=== PATIENT | female | born 1995 | race Caucasian/White ===

== ENCOUNTER 2016-11-10 16:07 | Outpatient (CLI) | payer OTHER ==
--- NOTE | 2016-11-10 16:55 | Non Stress Test Report ---
Non Stress Test Datetime Report Generated by CPN: 11/10/2016 16:55 INDICATION Indication for Study: Ordered by Provider Indication for Study (NST) Other: nst for repeat macrosomia VITAL SIGNS Temperature - NST: 99.4 MONITORING Monitor Explained: Monitor Explained; Test Explained; Patient Verbalized Understanding Time on Monitor: 11/10/2016 16:15 Time off Monitor: 11/10/2016 16:51 NST Duration: 36 NST INTERVENTIONS NST Interventions: PO Hydration; Reposition Patient Physician Notified NST: PJimmy Lowery CNM BABY A: [id number] BABY A Movement : Present Contraction Frequency : 2-9 FHR Baseline : 125 Accelerations : 15X15 Decelerations : None Variability : Moderate 6-25bpm NST Review: Meets Criteria for Reactive NST NST Review and Verified By : Toño Soria RN NST Results: Reactive NST REPORT Report Trigger: Send Report
== END 2016-11-10 17:04 | disposition home or self-care (01) ==
LOC: LC 16:07
PROVIDERS: ATTEND Obstetrics & Gynecology
PROC: 4A1HXCZ Monitoring of Products of Conception, Cardiac Rate, External Approach (ICD-10-PCS; principal; 2016-11-10)
DX: O36.63X0 Maternal care for excessive fetal growth, third trimester, not applicable or unspecified (principal); O36.8130 Decreased fetal movements, third trimester, not applicable or unspecified; Z3A.37 37 weeks gestation of pregnancy
CPT/HCPCS: 59025

== ENCOUNTER 2016-11-12 19:33 | Inpatient (IN) | payer OTHER ==
[2016-11-12 20:10] LABS: APPEARANCE,URINE CLEAR; BILIRUBIN,URINE NEGATIVE (NEGATIVE); GLUCOSE, URINE NEGATIVE (NEGATIVE); KETONES,URINE NEGATIVE (NEGATIVE); LEUKOCYTE ESTERASE,URINE NEGATIVE (NEGATIVE); NITRITE,URINE NEGATIVE (NEGATIVE); PROTEIN,URINE NEGATIVE (NEGATIVE); URINE SPECIFIC GRAVITY 1.006; UROBILINOGEN,URINE NEGATIVE mg/dL (<2.0)
[2016-11-12 20:12] LABS: AMNISURE (ROM) POSITIVE (NEGATIVE)
[2016-11-12 20:28] LABS: URINE BARBITURATES SCREEN NEGATIVE; URINE METHADONE SCREEN NEGATIVE; URINE OPIATES LOW NEGATIVE; URINE PHENCYCLIDINE SCREEN NEGATIVE
[2016-11-12] MEDS ORDERED: RINGERS SOLUTION,LACTATED 300 ML IV ONE (20:54)
[2016-11-12] MEDS ORDERED: MISOPROSTOL 0.1 MG TABLET PO ONE ×2 (20:54→20:58)
[2016-11-12] MEDS ORDERED: MISOPROSTOL 0.1 MG TABLET PV ONE (20:54)
[2016-11-12 20:55] LABS: ABSOLUTE EOSINOPHILS # (AUTO) 0.1 10^3/uL (0.0-0.6); ABSOLUTE LYMPHOCYTES (AUTO) 1.7 10^3/uL (0.5-4.7); ABSOLUTE MONOCYTES (AUTO) 0.7 10^3/uL (0.1-1.4); ABSOLUTE NEUT (AUTO) 6.3 10^3/uL (1.7-8.2); BASOPHILS % (AUTO) 0.3 % (0-2); EOSINOPHILS % (AUTO) 0.9 % (0-6); HEMATOCRIT 35.9 % (36.0-47.0); HGB HCT DIFFERENCE 0.1; LYMPHOCYTES % (AUTO) 19.2 % (13-45); MEAN CORPUSCULAR HEMOGLOBIN 31.2 pg (27.0-33.4); MEAN CORPUSCULAR HGB CONC 33.4 g/dL (32.0-36.0); MEAN CORPUSCULAR VOLUME 93 fl (80-97); MONOCYTES % (AUTO) 8.1 % (3-13); RED BLOOD COUNT 3.86 10^6/uL (3.72-5.28); RED CELL DISTRIBUTION WIDTH 13.7 % (11.5-14.0); SEGMENTED NEUTROPHILS % (AUTO) 71.5 % (42-78); WHITE BLOOD COUNT 8.8 10^3/uL (4.0-10.5)
[2016-11-12] MEDS ORDERED: MISOPROSTOL 0.1 MG TABLET ONE (21:06)
[2016-11-12] MEDS: RINGERS SOLUTION,LACTATED 1,000 ML IV PRN (21:17)
[2016-11-13] MEDS ORDERED: MISOPROSTOL 0.1 MG TABLET PO ONE (01:30)
[2016-11-13] MEDS ORDERED: ZOLPIDEM TARTRATE 5 MG TABLET PO ONE (01:30)
[2016-11-13] MEDS ORDERED: MISOPROSTOL 0.1 MG TABLET ONE (01:32)
[2016-11-13] MEDS ORDERED: MISOPROSTOL 0.1 MG TABLET PV ONE (01:32)
[2016-11-13] MEDS ORDERED: ZOLPIDEM TARTRATE 5 MG TABLET ONE (01:33)
[2016-11-13] MEDS: RINGERS SOLUTION,LACTATED 1,000 ML IV PRN (05:41)
[2016-11-13] MEDS ORDERED: NALBUPHINE HCL INJ 10 MG/1 ML AMPULE ONE (06:17)
[2016-11-13] MEDS ORDERED: PROMETHAZINE HCL 25 MG TABLET ONE (06:18)
[2016-11-13] MEDS ORDERED: MISOPROSTOL 0.2 MG TABLET ONE (07:57)
[2016-11-13] MEDS ORDERED: BUPIVACAINE HCL 0.25 % INJ/PF (2.5 MG/1 ML) 30 ML VIAL ONE ×2 (07:58→14:03)
[2016-11-13] MEDS ORDERED: FENTANYL/BUPIVACAINE/NS/PF 200 MCG/100 ML RTUINJ EPI ONE (07:58)
[2016-11-13] MEDS ORDERED: OXYTOCIN/NORMAL SALINE 20 UNIT/1,000 ML RTUINJ ONE (07:58)
[2016-11-13] MEDS ORDERED: LIDOCAINE 1% INJ-PF (10 MG/ML) 30 ML SDV ONE (07:58)
[2016-11-13] MEDS ORDERED: EPHEDRINE SULFATE INJ 50 MG/1 ML AMPULE ONE (07:58)
[2016-11-13] MEDS ORDERED: LIDOCAINE 1% INJ-PF (10 MG/ML) 30 ML SDV INJ PRN (08:10)
[2016-11-13] MEDS ORDERED: OXYTOCIN/NORMAL SALINE 1,000 ML IV PRN ×2 (08:16→16:30)
[2016-11-13] MEDS ORDERED: AMPICILLIN SODIUM 2 GM in NORMAL SALINE 100 ML IV ONE ×2 (11:31→20:30)
[2016-11-13] MEDS ORDERED: GENTAMICIN SULFATE INJ 80 MG/2 ML VIAL IV ONE (11:32)
[2016-11-13] MEDS ORDERED: ONDANSETRON HCL INJ/PF 4 MG/2 ML SDV ONE (11:33)
[2016-11-13] MEDS ORDERED: AMPICILLIN SOD INJ 2 GM VIAL ONE ×2 (11:33→15:37)
[2016-11-13] MEDS ORDERED: ONDANSETRON HCL INJ/PF 4 MG/2 ML SDV IV ONE (11:59)
--- NOTE | 2016-11-13 12:59 | L&D Progress Notes ---
PROGRESS NOTES Datetime Report Generated by CPN: 11/13/2016 12:59 PROGRESS NOTE Impression: Normal Progression of Labor Procedures: Sterile Vag Exam Plan: Continue Present Management; Induction Informed Consent Obtained: Vaginal Delivery; Induction of Labor; Risks, Benefits and Alternatives Discussed Vital Signs : Reviewed; Within Normal Limits Comment: 37+5ega with SROM yesterday at approx noon clear fluid. Due to prolonged SROM - Amp/Gent ordered. Pt given cytotec yesterday and this am has schieved 1cm dilation and then Pitocin inititated. Cvx now 3-4cm and no need for Cooks catheter. Will continue with pitocin and anticipate . EFW 9#. Reassuring FWB. VAGINAL EXAM Dilatation: 4 Dilatation: 0 Effacement: 80 Effacement: 75 Station: -2 Station: -2 MEMBRANES Pooling: Positive Pooling: Positive Membranes: Ruptured Membranes: Ruptured Amniotic Fluid Color: Clear FETUS A FHR - Baseline: 120 Monitoring: External US Variability: Moderate 6-25bpm Accelerations: 15X15 Decelerations: None FHR Category: Category I : 37.5 Estimated Weight (gm): 3800 Presentation: Vertex SIGNATURE SIGNATURE: [id number] SIGNATURE: [id number] Signature: with User ID: [email or web address]
[2016-11-13] MEDS ORDERED: GENTAMICIN SULFATE INJ 80 MG/2 ML VIAL ONE (13:01)
[2016-11-13] MEDS ORDERED: AMPICILLIN SODIUM 1 GM in NORMAL SALINE 50 ML IV SCH (14:00)
[2016-11-13] MEDS ORDERED: ACETAMINOPHEN WITH CODEINE #3 TABLET PO PRN ×2 (16:30)
[2016-11-13] MEDS ORDERED: PSEUDOEPHEDRINE HCL 30 MG TABLET PO PRN (16:30)
[2016-11-13] MEDS ORDERED: GLYCERIN/WITCH HAZEL LEAF 1 EACH MED..PAD TP PRN (16:30)
[2016-11-13] MEDS ORDERED: PROMETHAZINE HCL 25 MG TABLET PO PRN (16:30)
[2016-11-13] MEDS ORDERED: ACETAMINOPHEN 650 MG SUPP.RECT PR PRN (16:30)
[2016-11-13] MEDS ORDERED: PROMETHAZINE HCL 25 MG SUPP.RECT PR PRN (16:30)
[2016-11-13] MEDS ORDERED: MAGNESIUM HYDROXIDE SUSP 30 ML UDCUP PO PRN (16:30)
[2016-11-13] MEDS ORDERED: PROMETHAZINE HCL INJ 25 MG/1 ML VIAL IV PRN (16:30)
[2016-11-13] MEDS ORDERED: DIPHENHYDRAMINE HCL 25 MG CAPSULE PO PRN (16:30)
[2016-11-13] MEDS ORDERED: DIPH/PERTUSS(ACELL)/TETANUS VAC/PF 0.5 ML SYR (>=10YO) IM PRN (16:30)
[2016-11-13] MEDS ORDERED: ZOLPIDEM TARTRATE 5 MG TABLET PO PRN (16:30)
[2016-11-13] MEDS ORDERED: MEASLES,MUMPS&RUBELLA VACC/PF 0.5 ML VIAL SUBCUT PRN (16:30)
[2016-11-13] MEDS ORDERED: NA PHOS,M-B/NA PHOS,DI-BA (ADULT) 133 ML ENEMA PR PRN (16:30)
[2016-11-13] MEDS ORDERED: BENZOCAINE/MENTHOL AEROSOL SPRAY 56 ML TOP PRN (16:30)
[2016-11-13] MEDS ORDERED: DIBUCAINE 1% OINTMENT 28 GM TP PRN (16:30)
[2016-11-13 16:48] LABS: ARTERIAL BLOOD BASE EXCESS -3.4 mmol/L; ARTERIAL BLOOD O2 SATURATION 43.1 % (94-98)
[2016-11-13] MEDS ORDERED: GENTAMICIN SULFATE INJ 80 MG/2 ML VIAL IV SCH (18:00)
--- NOTE | 2016-11-13 18:48 | Admission Physical ---
Datetime Report Generated by CPN: 11/13/2016 18:48 CURRENT ADMISSION Chief Complaint: Suspected Ruptured Membranes Indication for Induction: PROM Admit Plan: Admit to Unit; Initiate Labor Induction Protocol ALLERGIES Medication Allergies: No Medication Allergies: No Known Allergies (11/12/2016) Medication Allergies: No Known Allergies (11/10/2016) Latex: No Latex Allergies OBSTETRICAL HISTORY EDC: 11/29/2016 00:00 : 1 Para: 0 Term: 0 : 0 SAB: 0 IAB: 0 Ectopic: 0 Livin Cesareans: 0 VBACs: 0 Multiple Births: 0 Gestational Diabetes: No Rh Sensitization: No Incompetent Cervix: No MARIUSZ: No Infertility: No ART Treatment: No Uterine Anomaly: No IUGR: No Hx Previous C/S: No Macrosomia: No Hx Loss/Stillborn: No PIH: No Hx : No Placenta Previa/Abruption: No Depression/PP Depression: No PTL/PROM: No Post Hemorrhage: No Current Procedures: Ultrasound Obstetrical History Comments: G1-current , possible LGA EFW 8lb 10oz (Annotations: Data stored by [facility] on behalf of user) SEE RECORDS Alcohol: No Marijuana : No Cocaine: No Other Illicit Drugs: No Cigarettes: Never Smoker. [id number] MEDICAL HISTORY Diabetes: No Blood Transfusion: No Pulmonary Disease (Asthma, TB): No Breast Disease: No Hypertension: No Account Supervisor Surgery: No Heart Disease: No Hosp/Surgery: Yes Autoimmune Disorder: No Anesthetic Complications: No Kidney Disease: No Abnormal Pap Smear: No Neuro/Epilepsy: No Psychiatric Disorders: No Other Medical Diseases: No Hepatitis/Liver Disease: No Significant Family History: No Varicosities/Phlebitis: No Trauma/Violence : No Thyroid Dysfunction: No Medical History Comments: [place] teeth extraction, root canal on 10/26/16 crown not on yet INFECTIOUS HISTORY Gonorrhea: No Genital Herpes: No Chlamydia: No Tuberculosis: No Syphilis: No Hepatitis: No HIV/AIDS Exposure: No Rash or Viral Illness: No HPV: No PHYSICAL EXAM General: Normal HEENT: Normal Neurologic: Normal Thyroid: Normal Heart: Normal Lungs: Normal Breast: Normal Back: Normal Abdomen: Normal Genitourinary Exam: Normal Extremities: Normal DTRs: Normal Pelvic Type: Adequate Vital Signs: Reviewed VAGINAL EXAM Dilatation: 4 Dilatation: 0 Effacement: 80 Effacement: 75 Station: -2 Station: -2 MEMBRANES Pooling: Positive Pooling: Positive Membranes: Ruptured Membranes: Ruptured Amniotic Fluid Color: Clear FETUS A EGA: 37.5 Monitoring: External US FHR- Baseline: 130 Variability: Moderate 6-25bpm Accelerations: 10X10 Decelerations: None FHR Category: Category I Estimated Weight (gm): 3800 Presentation: Vertex PLANS FOR LABOR AND DELIVERY Labor and Delivery: None Pain Management: Medications; Epidural Feeding Preference: Breast Benefit of Breast Feed Discussed: Yes Circumcision: N/A INFORMED CONSENT Informed Consent Obtained: Vaginal Delivery; Induction of Labor; Risks, Benefits and Alternatives Discussed Signature: with User ID: [email or web address]
[2016-11-13] MEDS: FERROUS SULFATE 325 MG TABLET PO SCH (20:15)
[2016-11-13] MEDS: DOCUSATE SODIUM 100 MG CAPSULE PO SCH (20:15)
[2016-11-13] MEDS: GENTAMICIN SULFATE IV SCH (22:39)
[2016-11-13] MEDS: WATER IV SCH (22:39)
[2016-11-13] MEDS: IBUPROFEN 800 MG TABLET PO SCH (22:39)
[2016-11-13] MEDS: FAMOTIDINE 20 MG TABLET PO SCH (22:39)
[2016-11-13] MEDS: DEXTROSE 5% IV SCH (22:39)
[2016-11-14] MEDS: DEXTROSE 5% IV SCH (03:02)
[2016-11-14] MEDS: GENTAMICIN SULFATE IV SCH (03:02)
[2016-11-14] MEDS: WATER IV SCH (03:02)
[2016-11-14] MEDS: IBUPROFEN 800 MG TABLET PO SCH ×3 (05:25→21:04)
[2016-11-14 08:16] LABS: HEMATOCRIT 33.2 % (36.0-47.0); HEMOGLOBIN 10.8 g/dL (12.0-15.5); HGB HCT DIFFERENCE -0.8; MEAN CORPUSCULAR HEMOGLOBIN 30.8 pg (27.0-33.4); MEAN CORPUSCULAR HGB CONC 32.5 g/dL (32.0-36.0); MEAN CORPUSCULAR VOLUME 95 fl (80-97); RED BLOOD COUNT 3.51 10^6/uL (3.72-5.28); RED CELL DISTRIBUTION WIDTH 13.8 % (11.5-14.0); WHITE BLOOD COUNT 9.8 10^3/uL (4.0-10.5)
--- NOTE | 2016-11-14 09:22 | PDOC PROGRESS REPORT ---
Subjective-OB Subjective: Post Delivery Day: 21 year old. Denies any needs at this time Physical Exam (OB) Vital Signs: Temp Pulse Resp BP Pulse Ox 97.8 F 72 16 112/56 L 100 11/14/16 07:44 11/14/16 07:44 11/14/16 07:44 11/14/16 07:44 11/14/16 07:44 Intake & Output 11/13/16 11/14/16 11/15/16 06:59 06:59 06:59 Intake Total 100 Output Total 250 Balance -150 Weight 75.45 kg - PIH/Pre-Eclampsia Clonus: Negative Headache: Absent Epigastric Pain: No Visual Changes: No - Lochia Lochia Amount: Scant < 10 ml Lochia Color: Rubra/Red - Abdomen Description: Soft Hernia Present: No Bowel Sounds: Normoactive Flatus Presence: Present Stool: No Fundal Description: Firm, Non-Midline Describe if Not Midline: due to void Fundal Height: u/u - u/2 Objective-Diagnostic Laboratory: 11/14/16 07:48 11/13/16 11/14/16 16:10 07:48 WBC 9.8 RBC 3.51 L Hgb 10.8 L Hct 33.2 L MCV 95 MCH 30.8 MCHC 32.5 RDW 13.8 Plt Count 159 Carbonic Acid 1.09 HCO3/H2CO3 Ratio 19:1 ABG pH 7.38 ABG pCO2 36.2 ABG pO2 24.4 L* ABG HCO3 21.0 ABG O2 Saturation 43.1 L ABG Base Excess -3.4 FiO2 CORD BLOOD
[2016-11-14] MEDS: PRENATAL VITAMIN W-O CA NO5/FE FUMARATE/FA CAPSULE PO SCH (09:50)
[2016-11-14] MEDS: SENNOSIDES/DOCUSATE 8.6-50 MG 1 EACH TABLET PO SCH (09:51)
[2016-11-14] MEDS: DOCUSATE SODIUM 100 MG CAPSULE PO SCH ×2 (09:51→17:50)
[2016-11-14] MEDS: FERROUS SULFATE 325 MG TABLET PO SCH ×2 (09:51→17:50)
[2016-11-14] MEDS: FAMOTIDINE 20 MG TABLET PO SCH ×2 (09:51→21:04)
[2016-11-15] MEDS: IBUPROFEN 800 MG TABLET PO SCH ×2 (06:12→14:13)
--- NOTE | 2016-11-15 09:13 | PDOC PROGRESS REPORT ---
Subjective-OB Subjective: Post Delivery Day: 21 year old. Denies any needs at this time Doing well, ready to go home, , feels good, scant lochia, eating well Physical Exam (OB) Vital Signs: Temp Pulse Resp BP Pulse Ox 98.1 F 59 L 15 108/51 L 100 11/15/16 07:38 11/15/16 07:38 11/15/16 07:38 11/15/16 07:38 11/15/16 07:38 Intake & Output 11/14/16 11/15/16 11/16/16 06:59 06:59 06:59 Intake Total 100 Output Total 250 Balance -150 - PIH/Pre-Eclampsia Clonus: Negative Headache: Absent Epigastric Pain: No Visual Changes: No - Dressing Removed: No - Lochia Lochia Amount: Small 10-25 ml Lochia Color: Rubra/Red - Abdomen Description: Soft, Round Hernia Present: No Fundal Description: Firm, Midline Describe if Not Midline: due to void Fundal Height: u/u - u/2 Objective-Diagnostic Laboratory: 11/14/16 07:48 Assessment and Plan(PN) - Assessment and Plan (1) Vaginal delivery Is this a current diagnosis for this admission?: Yes - Time Spent with Patient Time with patient: Less than 15 minutes Medications reviewed and adjusted accordingly: Yes - Disposition Anticipated Discharge: Home - home today
--- NOTE | 2016-11-15 09:16 | PDOC DISCHARGE SUMMARY ---
Final Diagnosis Discharge Date: 11/15/16 - Final Diagnosis (1) Vaginal delivery Is this a current diagnosis for this admission?: Yes Discharge Data - Discharge Medication Home Medications: Pnv with Ca,No.72/Iron/FA [Pnv Plus Multivit Tab] 1 tab PO DAILY Ranitidine HCl [Zantac] 300 mg PO PRN PRN 11/10/16 Gestational Age: 37.5 Reason(s) for Admission: PROM Procedures: Ultrasound Intrapartum Procedure(s): Spontaneous Vaginal Delivery - Data Baby 1 Female at 1 minute: 9 at 5 minutes: 9 Weight: 3.317 kg Home with Mother: Yes Complications: No - Diagnosis Test Laboratory: Temp Pulse Resp BP Pulse Ox 98.1 F 59 L 15 108/51 L 100 11/15/16 07:38 11/15/16 07:38 11/15/16 07:38 11/15/16 07:38 11/15/16 07:38 11/12/16 11/12/16 11/14/16 19:50 20:33 07:48 RBC 3.86 3.51 L Hgb 12.0 10.8 L Hct 35.9 L 33.2 L Urine Opiates Screen NEGATIVE - Discharge information/Instructions Discharge Activity: Activity As Tolerated, No Lifting Over 10 Pounds, No Lifting /Push/Pulling, Pelvic Rest Discharge Diet: As Tolerated, Regular Disposition: HOME, SELF-CARE Follow up with: [facility] in: 4, Weeks
[2016-11-15] MEDS: FERROUS SULFATE 325 MG TABLET PO SCH (10:53)
[2016-11-15] MEDS: DOCUSATE SODIUM 100 MG CAPSULE PO SCH (10:54)
[2016-11-15] MEDS: FAMOTIDINE 20 MG TABLET PO SCH (10:54)
[2016-11-15] MEDS: PRENATAL VITAMIN W-O CA NO5/FE FUMARATE/FA CAPSULE PO SCH (10:54)
[2016-11-15] MEDS: SENNOSIDES/DOCUSATE 8.6-50 MG 1 EACH TABLET PO SCH (10:55)
[2016-11-15 15:34] VITALS: BP 126/57
--- NOTE | 2016-11-21 15:28 | Delivery Summary ---
Del Sum A-C Datetime Report Generated by CPN: 11/21/2016 15:28 DELIVERY PERSONNEL DELIVERY PERSONNEL: [id number] DELIVERY PERSONNEL: [id number] DELIVERY PERSONNEL: [id number] Delivery Doctor:: Raya Nash CNM Labor and Delivery Nurse:: Samm Cristina RNradiological technician Nurse:: Gloria Colon RN Hospice Massage Therapist/WOOL CARDER: Nina Roth CNA II Hospice Massage Therapist/WOOL CARDER: Juany Bingham, CHILD PSYCHIATRIST MATERNAL INFORMATION Delivery Anesthesia: Epidural Medications During Delivery: Nubain 10 mg IV @ 0617 Phenergan 25mg PO 0617 Zofran 4mg IV @ 1137 Gentamycin 150mg IV 1309 Medications After Delivery: Pitocin Bolus-Please Comment Meds After Delivery Comment: 600 ml bolus then 200ml/hr till complete. titrate more for bleeding Estimated Blood Loss (ml): 400 Maternal Complications: Premature Rupture of Membranes Complication Details: prophalaxis antibiotic treatment for >24 hours rupture membranes with Ampicillin and Gentamycin. Provider Comments: viable female from OA to EAGLE over intact perineum, placed on mothers abdomen, nuchal cord x 1, reduced without difficulty. Cord clamped and cut after 2 minutes by hsb. cord gases and cord blood to lab. FFFM, EBL = 400cc Baby and mom remains in recovery in stable condition Regular diet (Annotations: Data stored by CPN on behalf of user) LABOR SUMMARY EDC: 11/29/2016 00:00 No. Babies in Womb: 1 Attempted: No Labor Anesthesia: Epidural LABOR INFORMATION Reason for Induction: Not Applicable Onset of Labor: 11/13/2016 06:01 Complete Dilatation: 11/13/2016 14:57 Cervical Ripening Agents: Cytotec @ Cervical Ripening Agents: Cytotec @ 50 mcg PO Cervical Ripening Agents: Cytotec @ 25 mcg PV Cervical Ripening Agents: Cytotec @ 50 po Other Ripening Agents: Cytotec 50mcg PO 2115,0145 Cytotec 25mcg PV 211,0145 Oxytocin: Augmentation Group B Beta Strep: Negative Antibiotics # of Doses: 2 Antibiotics Time of Last Dose: 1547 Name of Antibiotic Given: Ampicillin 2 grams Steroids Given: None Reason Steroids Not Administered: Not Applicable MEMBRANES Membranes Rupture Method: Spontaneous Rupture of Membranes: 11/12/2016 12:00 Length of Rupture (hr): 28.17 Amniotic Fluid Color: Clear Amniotic Fluid Color: Clear Amniotic Fluid Color: Clear Amniotic Fluid Amount: Small Amniotic Fluid Odor: None Amniotic Fluid Odor: Normal STAGES OF LABOR Stage 1 hr: 8 Stage 1 min: 56 Stage 2 hr: 1 Stage 2 min: 13 Stage 3 hr: 0 Stage 3 min: 8 Total Time in Labor hr: 10 Total Time in Labor min: 17 VAGINAL DELIVERY Episiotomy: None Laceration Extension: N/A Laceration Type: None Laceration Repair: Not Applicable Sponge Count Correct: N/A CSECTION DELIVERY Primary Indication: N/A Secondary Indication: N/A BABY A INFORMATION Delivery Date/Time: 11/13/2016 16:10 Method of Delivery: Vaginal Method of Delivery: Vaginal Born in Route : No : N/A Forceps: N/A Vacuum Extraction: N/A Shoulder Dystocia : No PRESENTATION/POSITION BABY A Presentation: Cephalic Presentation: Cephalic Presentation: Cephalic Cephalic Presentation: Vertex Vertex Position: Left Occipital Anterior Breech Presentation: N/A PLACENTA INFORMATION BABY A Placenta Delivery Time : 11/13/2016 16:18 Placenta Method of Delivery: Expressed Placenta Status: Delivered SCORES BABY A Heart Rate 1 min: >100 bpm Resp Effort 1 min: Good Cry Reflex Irritability 1 min: Cough or Sneeze or Pulls Away Muscle Tone 1 min: Active Motion Color 1 min: Body [place], Extremities Blue Resuscitation Effort 1 min: Tactile Stimulation SCORE 1 MIN: 9 Heart Rate 5 min: >100 bpm Resp Effort 5 min: Good Cry Reflex Irritability 5 min: Cough or Sneeze or Pulls Away Muscle Tone 5 min: Active Motion Color 5 min: Body [place], Extremities Blue Resuscitation Effort 5 min: N/A SCORE 5 MIN: 9 INFANT INFORMATION BABY A Gestational Age at Delivery: 37.5 Gestational Status: Early Term- 37- 38.6 Weeks Infant Outcome : Liveborn Condition : Stable Infant Sex: Female Sex: Female IDENTIFICATION BABY A Verification Date/Time: 11/13/2016 16:28 ID Band Number: [id number] Mother's Name Verified: Yes Infant RN Verifying : Arleth Valles RN/ Josiane Dejesus WEIGHT/LENGTH BABY A Infant Birthweight (gm): 3310 Weight (lb): 7 Weight (oz): 5 Infant Length (in): 20.50 Length (cm): 52.07 CORD INFORMATION BABY A No. Cord Vessels: 3 Nuchal Cord : Around Neck x1, Loose Cord Blood Taken: Yes-For Storage (Mom's Blood type +) Infant Suction: Mouth; Nose ASSESSMENT BABY A Skin to Skin: Yes Skin to Skin Time (min): 30 BABY B INFORMATION : N/A
== END 2016-11-15 16:32 | disposition home or self-care (01) | DRG 775 ==
LOC: LC 19:33 → LR 20:24 → 2S 11-13 18:46
PROVIDERS: ADMIT Obstetrics & Gynecology; ATTEND Obstetrics & Gynecology
PROC: 3E0P7GC Introduction of Other Therapeutic Substance into Female Reproductive, Via Natural or Artificial Opening (ICD-10-PCS; 2016-11-12)
PROC: 10E0XZZ Delivery of Products of Conception, External Approach (ICD-10-PCS; principal; 2016-11-13)
PROC: 4A1HXCZ Monitoring of Products of Conception, Cardiac Rate, External Approach (ICD-10-PCS; 2016-11-13)
DX: O42.12 Full-term premature rupture of membranes, onset of labor more than 24 hours following rupture (principal); O69.81X0 Labor and delivery complicated by cord around neck, without compression, not applicable or unspecified; Z3A.37 37 weeks gestation of pregnancy; Z37.0 Single live birth
CPT/HCPCS: 36415; 80307; 81005; 82803; 84112; 85025; 85027; 86592; 86850; 86900; 86901; 88307; 94760; J0290; J1580; J2300; J2405; J2590; J3490